=== PATIENT | female | born 1985 | race African-American/Black ===

== ENCOUNTER 2017-06-25 18:37 | Emergency (ER) | payer OTHER ==
[~2017-06-25] VITALS: Ht 162.6 cm; Wt 83.9 kg
[2017-06-25 19:21] VITALS: BP 119/77
[2017-06-25] MEDS ORDERED: TRUFORM COMPRE1 EACH MC (19:38)
[2017-06-25 19:42] VITALS: BP 119/72
--- NOTE | 2017-06-26 11:58 | Diagnostic Imaging Report ---
Indication: Dyspnea Technique: XRAY Chest 1v Comparison: None Findings: Heart size and mediastinal contours are within normal limits. There is no focal airspace consolidation, pleural effusion or pneumothorax. No acute osseous abnormality is seen. Impression: No radiographic evidence of acute cardiopulmonary disease.
--- NOTE | 2017-06-28 08:21 | Emergency Room Report ---
History of Present Illness General Chief Complaint: General Complaint Source: Patient Present Illness HPI 32-year-old female presents ED for evaluation. Patient states she's been noticing bilateral foot and ankle swelling for the last 2 days. Denies any pain. Denies any calf pain. Denies any chest pain or shortness of breath. No prior history of heart disease. States she's been recently sitting at a desk for extended period of time. No other aggravating relieving factors. Denies any other associated symptoms Allergies: Coded Allergies: No Known Allergies (Unverified , 06/25/17) Patient History Past Medical History: asthma Past Surgical History: none Pertinent Family History: none Social History: Denies: smoking, alcohol use, drug use Last Menstrual Period: 05/15/17 Now: Yes : 0 Para: 0 Immunizations: UTD Reviewed Nursing Documentation: PMH: Agreed; PSxH: Agreed Nursing Documentation-PMH Past Medical History: No History, Except For Hx Asthma: Yes Review of Systems All Other Systems: negative except mentioned in HPI Physical Exam Vital Signs Date Time Temp Pulse Resp B/P (MAP) Pulse Ox O2 Delivery O2 Flow Rate FiO2 06/25/17 18:44 98.2 92 20 119/77 99 Room Air 98.2 Sp02 EP Interpretation: reviewed, normal General Appearance: no apparent distress, alert, GCS 15, non-toxic Head: normocephalic, atraumatic Eyes: bilateral eye normal inspection, bilateral eye PERRL ENT: hearing grossly normal, normal pharynx, no angioedema, normal voice Neck: full range of motion, supple/symm/no masses Respiratory: chest non-tender, lungs clear, normal breath sounds, speaking full sentences Cardiovascular #1: regular rate, rhythm, no edema Cardiovascular #2: 2+ carotid (R), 2+ carotid (L), 2+ radial (R), 2+ radial (L) , 2+ dorsalis pedis (R), 2+ dorsalis pedis (L) Gastrointestinal: normal bowel sounds, non tender, soft, non-distended, no guarding, no rebound Rectal: deferred Genitourinary: normal inspection, no CVA tenderness Musculoskeletal: back normal, gait/station normal, normal range of motion, non- tender, no calf tenderness, swelling - 1+ pitting edema b/l LEs Neurologic: alert, oriented x3, responsive, motor strength/tone normal, sensory intact, speech normal Psychiatric: judgement/insight normal, memory normal, mood/affect normal, no suicidal/homicidal ideation Reflexes: 3+ bicep (R), 3+ bicep (L), 3+ tricep (R), 3+ tricep (L), 3+ knee (R) , 3+ knee (L) Skin: normal color, no rash, warm/dry, well hydrated Lymphatic: no adenopathy Medical Decision Making Diagnostic Impression: Primary Impression: Pedal edema ER Course Hospital Course 32-year-old female presents ED with bilateral foot and ankle swelling Differential diagnoses include: Cellulitis, DVT, CHF, edema Clinical course Patient placed on stretcher. After initial history, physical exam reveals a female in no acute distress. On exam there is 1+ pitting edema to bilateral ankle and feet. swelling. No calf pain. No induration or erythema. My suspicion for acute process such as cellulitis or DVT is low Chest x-ray shows no evidence of fluid overload suggestive of CHF. Discussed findings with patient. Swelling likely due to new circumstance of extended periods of sitting at a desk. I will recommended compression stockings. close follow-up with PMD Diagnosis - pedal edema stable and discharged to home with prescription for compression stockings. Instructed to followup with PMD. Instructed return to ED if symptoms recur or worsen Chest X-Ray Diagnostic Results Chest X-Ray Diagnostic Results : Chest X-Ray Ordered: Yes # of Views/Limited/Complete: 1 View Indication: Shortness of Breath EP Interpretation: Yes Interpretation: no consolidation, no effusion, no pneumothorax, no acute cardiopulmonary disease Impression: No acute disease Electronically Signed by: Electronically signed by Preston Ricks MD Last Vital Signs Date Time Temp Pulse Resp B/P (MAP) Pulse Ox O2 Delivery O2 Flow Rate FiO2 06/25/17 19:42 92 20 119/72 99 Room Air 06/25/17 19:21 98.2 98.2 Status: improved Disposition: HOME, SELF-CARE Condition: Stable Scripts Comp.stocking,Knee,Regular,Lrg (TRUFORM COMPRESSION STOCKING) 1 Each Each EACH , #2 Prov: Preston Ricks MD 06/25/17 Referrals: PITO GOODSON,REFERRING (PCP) Patient Instructions: Edema, [id number] Preston Ricks MD Jun 28, 2017 08:21
== END 2017-06-25 19:42 | disposition home or self-care (01) ==
LOC: EMR 18:55
DX: R60.0 Localized edema (principal); J45.909 Unspecified asthma, uncomplicated
CPT/HCPCS: 71045; 99283